=== PATIENT | female | born 1985 | race Caucasian/White ===

== ENCOUNTER 2017-03-02 20:02 | Emergency (ER) | payer OTHER | END 2017-03-02 21:30 | disposition home or self-care (01) | LOC: ER1 20:02 | DX: T63.441A Toxic effect of venom of bees, accidental (unintentional), initial encounter (principal); L53.0 Toxic erythema; F17.210 Nicotine dependence, cigarettes, uncomplicated | CPT/HCPCS: 99282; Q0163 ==

== ENCOUNTER → 2021-05-02 | Outpatient (CLI) | payer OTHER ==
[2021-05-02 10:34] LABS: BUN/CREATININE RATIO 12 (0-10)
== END ==
LOC: LAB 08:04
PROVIDERS: Nurse Practitioner Family
DX: E87.5 Hyperkalemia (principal)
CPT/HCPCS: 36415; 80053

== ENCOUNTER → 2022-03-09 | Outpatient (CLI) | payer OTHER | LOC: MAMO 02-28 10:30 | DX: N63.11 Unspecified lump in the right breast, upper outer quadrant (principal) | CPT/HCPCS: 76642-RT; 77066; G0279 ==